=== PATIENT | female | born 1995 | race Hispanic/Latino ===

== ENCOUNTER 2017-09-15 12:15 | Inpatient (IN) | payer MEDICAID ==
[~2017-09-15] VITALS: Ht 142.2 cm; Wt 72.1 kg
[2017-09-15 13:21] LABS: APPEARANCE,URINE Clear (CLEAR); BILIRUBIN,URINE Negative (NEGATIVE); COLOR,URINE Yellow (YELLOW); GLUCOSE, URINE (UA) Negative (NEGATIVE); KETONES,URINE Negative (NEGATIVE); LEUKOCYTE ESTERASE ,URINE Moderate (NEGATIVE); NITRATE,URINE Negative (NEGATIVE); OCCULT BLOOD,URINE Large (NEGATIVE); PROTEIN,URINE Negative (NEGATIVE); UROBILINOGEN,URINE 0.2 mg/dL (0.2-1.0)
[2017-09-15] MEDS ORDERED: LACTATED RINGERS 1000ML 1,000 ML IV PRN (13:45)
[2017-09-15 13:54] LABS: BACTERIA,URINE Rare /HPF (None Seen); RBC,URINE 51-100 /HPF (0-1); SQUAMOUS EPITHELIAL CELL,UR Few /LPF (0-2)
[2017-09-15 15:35] LABS: HEMATOCRIT 37.3 % (36-48); MEAN CORPUSCULAR VOLUME 91.7 fL (79-99); NUCLEATED RED BLOOD CELLS 0.1 % (0.0-0.19); PLATELET COUNT (AUTO) 243 K/uL (130-400); RED BLOOD CELL COUNT(AUTO) 4.07 MIL/uL (4.00-5.50); RED CELL DISTRIBUTION WIDTH 14.1 % (11.0-15.5); WHITE BLOOD COUNT (AUTO) 9.5 K/uL (4.8-10.8)
[2017-09-15] MEDS ORDERED: LACTATED RINGERS 1000ML 1,000 ML IV ONE (23:45)
[2017-09-15] MEDS ORDERED: OXYTOCIN 10 USP UNITS/ML ONE (23:46)
[2017-09-16] MEDS ORDERED: OXYTOCIN 10 USP UNITS/ML 20 UNIT in LACTATED RINGERS 1000ML 1,000 ML IV SCH ×2
[2017-09-16] MEDS ORDERED: MEPERIDINE-PF 50 MG/ML SYG IVP PRN (02:45)
[2017-09-16] MEDS ORDERED: PROMETHAZINE HCL 25 MG/ML 1ML AMPULE IM PRN ×3 (02:45→21:30)
[2017-09-16] MEDS ORDERED: LACTATED RINGERS 500 ML 500 ML IV PRN (02:45)
[2017-09-16] MEDS ORDERED: EPHEDRINE SULFATE 50 MG/ML AMPULE IVP PRN ×2 (02:45→14:00)
[2017-09-16] MEDS ORDERED: NALOXONE HCL 0.4 MG/1 ML ML IV PRN (02:45)
[2017-09-16] MEDS ORDERED: ROPIVACAINE 0.2%200ML EPIDURAL 200 ML EP SCH (02:45)
[2017-09-16] MEDS ORDERED: CEFAZOLIN SODIUM 1 GM VIAL IVP PRN (11:15)
[2017-09-16] MEDS ORDERED: CALDOLOR 800MG+NS 250ML 250 ML IV PRN (11:15)
[2017-09-16] MEDS ORDERED: LIDOCAINE HCL-MPF 2% 10ML AMP IJ ONE (11:28)
[2017-09-16] MEDS ORDERED: EPHEDRINE-NS PF 50MG/5ML SYRINGE IV ONE (11:33)
[2017-09-16] MEDS ORDERED: BUPIVACAINE/PF 0.25% 30ML VIAL IJ ONE (11:33)
[2017-09-16] MEDS ORDERED: OXYTOCIN 10 UNIT/1ML 10ML VIAL ONE ×2 (11:34→11:57)
[2017-09-16] MEDS ORDERED: CEFAZOLIN SODIUM 1 GM VIAL IVP ONE (11:48)
[2017-09-16] MEDS ORDERED: MIDAZOLAM HCL 1 MG/ML 2ML VIAL ONE (12:01)
[2017-09-16] MEDS ORDERED: FENTANYL CITRATE PF 50 MCG/1 ML 2ML VIAL ONE (12:02)
[2017-09-16] MEDS ORDERED: ONDANSETRON HCL 4 MG/2 ML VIAL ONE (12:08)
[2017-09-16] MEDS ORDERED: SODIUM CHLORIDE 0.9% 10 ML VIAL IVP PRN (12:45)
[2017-09-16] MEDS ORDERED: MEASLES/MUMPS/RUBELLA VACCINE, LIVE 0.5 ML/VIAL SQ SCH (12:45)
[2017-09-16] MEDS ORDERED: DIPH,PERTUSS(ACELL),TET VAC/PF 0.5 ML VIAL IM SCH (12:45)
[2017-09-16] MEDS ORDERED: HYDROCODONE/ACETAMINOPHEN 5/325 MG TAB PO PRN ×2 (14:00)
[2017-09-16] MEDS ORDERED: METOCLOPRAMIDE 10 MG/2 ML VIAL IVP PRN (14:00)
[2017-09-16] MEDS ORDERED: MORPHINE SULFATE 2 MG/ML 1ML SYG IVP PRN (14:00)
[2017-09-16] MEDS ORDERED: ONDANSETRON HCL 4 MG/2 ML 8 MG in SODIUM CHLORIDE 0.9% 50 ML IVP NR (14:00)
[2017-09-16] MEDS ORDERED: NALOXONE HCL 0.4 MG/1 ML ML IVP PRN ×2 (14:00)
[2017-09-16] MEDS ORDERED: DiphenhydrAMINE HCL 50 MG/ML VIAL IVP PRN (14:00)
[2017-09-16] MEDS ORDERED: ONDANSETRON HCL 4 MG/2 ML VIAL IVP PRN ×2 (14:00)
[2017-09-16 14:48] VITALS: BP 116/60
[2017-09-16 16:48] VITALS: BP 116/64
[2017-09-16] MEDS ORDERED: PNV1TABL17 PO (17:28)
[2017-09-16 20:20] VITALS: BP 123/66
[2017-09-16] MEDS: DEXTROSE 5 %-0.45 % NACL 1,000 ML IV PRN (21:16)
[2017-09-16] MEDS ORDERED: MEPERIDINE-PF 75 MG/ML SYG IM PRN (21:30)
[2017-09-16] MEDS: CALDOLOR 800MG+NS 250ML 250 ML IV SCH (21:30)
[2017-09-16 23:13] VITALS: BP 98/60
[2017-09-17 03:01] VITALS: BP 105/52
[2017-09-17] MEDS: DEXTROSE 5 %-0.45 % NACL 1,000 ML IV PRN (04:46)
[2017-09-17] MEDS: CALDOLOR 800MG+NS 250ML 250 ML IV SCH (05:02)
[2017-09-17 07:02] LABS: HEMATOCRIT 32.2 % (36-48); MEAN CORPUSCULAR HEMOGLOBIN 33.3 pg (27.0-33.0); MEAN CORPUSCULAR HGB CONC 35.9 g/dL (32.0-36.0); MEAN CORPUSCULAR VOLUME 92.7 fL (79-99); NUCLEATED RED BLOOD CELLS 0.1 % (0.0-0.19); PLATELET COUNT (AUTO) 181 K/uL (130-400); RED BLOOD CELL COUNT(AUTO) 3.47 MIL/uL (4.00-5.50); RED CELL DISTRIBUTION WIDTH 14.4 % (11.0-15.5); WHITE BLOOD COUNT (AUTO) 10.4 K/uL (4.8-10.8)
[2017-09-17 07:56] VITALS: BP 105/46
[2017-09-17 08:22] LABS: HEPATITIS Bs ANTIGEN SCREEN P Negative (Negative)
[2017-09-17] MEDS: ACETAMINOPHEN-CODEINE 300/30MG TAB PO PRN ×2 (09:54→16:57)
[2017-09-17 11:13] VITALS: BP 106/72
[2017-09-17] MEDS ORDERED: BISACODYL 10 MG SUPP.RECT RC PRN (12:15)
[2017-09-17] MEDS: SIMETHICONE 80 MG TAB.CHEW PO PRN ×3 (13:20→20:51)
[2017-09-17] MEDS: IBUPROFEN 600 MG TABLET PO PRN ×2 (13:22→18:17)
[2017-09-17 15:46] VITALS: BP 108/65
[2017-09-17] MEDS: DOCUSATE SODIUM 100 MG CAP PO SCH (20:51)
[2017-09-17 21:01] VITALS: BP 107/61
[2017-09-18 00:08] VITALS: BP 118/82
[2017-09-18] MEDS: IBUPROFEN 600 MG TABLET PO PRN ×2 (00:48→13:24)
[2017-09-18 04:05] VITALS: BP 109/60
[2017-09-18] MEDS: ACETAMINOPHEN-CODEINE 300/30MG TAB PO PRN (05:57)
[2017-09-18 07:49] VITALS: BP 113/65
[2017-09-18] MEDS: DOCUSATE SODIUM 100 MG CAP PO SCH (10:16)
[2017-09-18] MEDS: SIMETHICONE 80 MG TAB.CHEW PO PRN (10:17)
[2017-09-18 11:29] VITALS: BP 126/68
== END 2017-09-18 14:00 | disposition home or self-care (01) | DRG 540 ==
LOC: LDH 12:15 → OBSVTOIN 12:15 → LDH 09-16 02:50 → WSH 09-16 14:45
PROVIDERS: ADMIT Obstetrics & Gynecology; ATTEND Obstetrics & Gynecology
PROC: 3E0234Z Introduction of Serum, Toxoid and Vaccine into Muscle, Percutaneous Approach (ICD-10-PCS; 2017-09-16)
PROC: 3E0134Z Introduction of Serum, Toxoid and Vaccine into Subcutaneous Tissue, Percutaneous Approach (ICD-10-PCS; 2017-09-16)
PROC: 10D00Z1 Extraction of Products of Conception, Low, Open Approach (ICD-10-PCS; principal; 2017-09-16 11:30)
DX: O32.9XX0 Maternal care for malpresentation of fetus, unspecified, not applicable or unspecified (principal); E66.9 Obesity, unspecified; O76 Abnormality in fetal heart rate and rhythm complicating labor and delivery; N83.8 Other noninflammatory disorders of ovary, fallopian tube and broad ligament; O99.214 Obesity complicating childbirth; Z68.35 Body mass index [BMI] 35.0-35.9, adult; Z3A.39 39 weeks gestation of pregnancy; Z37.0 Single live birth; Z23 Encounter for immunization
CPT/HCPCS: 36415; 59510; 81001; 82120; 85027; 86592; 86850; 86900; 86901; 87340; 88305; 90707; 90715; A4314; A4344; A4606; J0690; J1741; J2175; J2250; J2405; J2550; J2590; J3010; J3490; J7120

== ENCOUNTER 2021-08-19 13:00 | Inpatient (IN) | payer MEDICAID ==
[~2021-08-19] VITALS: Ht 142.2 cm; Wt 78.5 kg
[~2021-08-19 13:00] MED LIST: PNV1TABL17 PO
[2021-08-22] MEDS ORDERED: LORA10TA7 PO (05:33)
[2021-08-22] MEDS ORDERED: PREN-196 PO (05:33)
[2021-08-22] MEDS ORDERED: ALBU1.252 IH (05:49)
[2021-08-22] MEDS ORDERED: CEFAZOLIN SODIUM 1 GM VIAL IVP PRN (06:00)
[2021-08-22] MEDS: LACTATED RINGERS 1000ML 1,000 ML IV SCH ×2 (06:10→21:30)
[2021-08-22 06:25] LABS: HEMATOCRIT 35.1 % (36-48); MEAN CORPUSCULAR HEMOGLOBIN 29.1 pg (27.0-33.0); MEAN CORPUSCULAR HGB CONC 33.3 g/dL (32.0-36.0); MEAN CORPUSCULAR VOLUME 87.3 fL (79-99); RED BLOOD CELL COUNT(AUTO) 4.02 MIL/uL (4.00-5.50); RED CELL DISTRIBUTION WIDTH 13.8 % (11.0-15.5); WHITE BLOOD COUNT (AUTO) 7.9 K/uL (4.8-10.8)
[2021-08-22 06:28] VITALS: BP 107/60
[2021-08-22] MEDS ORDERED: FENTANYL CITRATE PF 50 MCG/1 ML 2ML VIAL ONE (08:03)
[2021-08-22] MEDS ORDERED: ONDANSETRON 4MG INJ ONE (08:03)
[2021-08-22] MEDS ORDERED: MORPHINE PF 100MG/10ML AMP IV ONE (08:03)
[2021-08-22] MEDS ORDERED: OXYTOCIN 10 USP UNITS/ML ONE (08:06)
[2021-08-22] MEDS ORDERED: OXYTOCIN-LR 20 UNITS/1000 ML 1,000 ML IV ONE (08:33)
[2021-08-22] MEDS ORDERED: EPHEDRINE SULFATE 50 MG/ML AMPULE ONE (09:19)
[2021-08-22] MEDS ORDERED: LORATADINE 10 MG TABLET PO PRN (10:30)
[2021-08-22] MEDS ORDERED: DiphenhydrAMINE HCL 50 MG/ML VIAL IVP PRN ×2 (11:00→16:30)
[2021-08-22] MEDS ORDERED: EPHEDRINE SULFATE 50 MG/ML AMPULE IVP PRN ×2 (11:00→16:30)
[2021-08-22] MEDS ORDERED: NALOXONE HCL 0.4 MG/1 ML ML IVP PRN ×4 (11:00→16:30)
[2021-08-22 11:36] LABS: RAPID PLASMA REAGIN NONREACTIVE (NONREACTIVE)
[2021-08-22 12:38] VITALS: BP 101/54
[2021-08-22] MEDS: ONDANSETRON 4MG INJ IVP PRN ×2 (14:39→21:44)
[2021-08-22 16:15] VITALS: BP 107/73
[2021-08-22] MEDS ORDERED: ONDANSETRON 4MG INJ IVP PRN (16:30)
[2021-08-22] MEDS ORDERED: MEPERIDINE-PF 75 MG/ML SYG IM PRN (17:00)
[2021-08-22] MEDS ORDERED: PROMETHAZINE HCL 25 MG/ML 1ML AMPULE IM PRN (17:00)
[2021-08-22] MEDS ORDERED: 0.9%NACL 10ML VIAL IVP PRN (17:00)
[2021-08-22] MEDS: DEXTROSE 5 %-0.45 % NACL 1,000 ML IV PRN (18:43)
[2021-08-22 19:30] VITALS: BP 95/55
[2021-08-22 22:52] VITALS: BP 97/58
[2021-08-23] MEDS: DEXTROSE 5 %-0.45 % NACL 1,000 ML IV PRN (02:11)
[2021-08-23 04:20] VITALS: BP 92/58
[2021-08-23 06:27] LABS: HEMATOCRIT 31.1 % (36-48); MEAN CORPUSCULAR HEMOGLOBIN 29.4 pg (27.0-33.0); MEAN CORPUSCULAR HGB CONC 32.5 g/dL (32.0-36.0); MEAN CORPUSCULAR VOLUME 90.7 fL (79-99); RED BLOOD CELL COUNT(AUTO) 3.43 MIL/uL (4.00-5.50); WHITE BLOOD COUNT (AUTO) 9.7 K/uL (4.8-10.8)
[2021-08-23 07:30] VITALS: BP 100/60
[2021-08-23] MEDS ORDERED: BISACODYL 10 MG SUPP.RECT RC PRN (07:30)
[2021-08-23] MEDS ORDERED: ACETAMINOPHEN WITH CODEINE 1 TAB TAB PO PRN (07:30)
[2021-08-23] MEDS ORDERED: ACETAMINOPHEN 500 MG TABLET PO PRN (07:30)
[2021-08-23] MEDS ORDERED: IBUPROFEN 800 MG TAB PO SCH (07:30)
[2021-08-23] MEDS ORDERED: SIMETHICONE 80 MG TAB.CHEW PO PRN (07:30)
[2021-08-23] MEDS ORDERED: HYDROCODONE/ACETAMINOPHEN 5/325 MG TAB PO PRN (07:30)
[2021-08-23] MEDS ORDERED: DOCUSATE SODIUM 100 MG CAP PO SCH (09:00)
[2021-08-23] MEDS ORDERED: ACET1TAB25 PO (11:40)
[2021-08-23] MEDS ORDERED: FERS325 PO (11:41)
[2021-08-23 12:07] VITALS: BP 100/48
[2021-08-23 16:09] LABS: HEPATITIS Bs ANTIGEN SCREEN P Negative (Negative)
== END 2021-08-23 13:10 | disposition home or self-care (01) | DRG 540 ==
LOC: LDH 08-22 05:15 → WSH 08-22 12:43
PROVIDERS: ADMIT Obstetrics & Gynecology; ATTEND Obstetrics & Gynecology
PROC: 10D00Z1 Extraction of Products of Conception, Low, Open Approach (ICD-10-PCS; principal; 2021-08-22 08:00)
DX: O34.211 Maternal care for low transverse scar from previous cesarean delivery (principal); J45.909 Unspecified asthma, uncomplicated; Z20.822 Contact with and (suspected) exposure to COVID-19; O99.62 Diseases of the digestive system complicating childbirth; O99.52 Diseases of the respiratory system complicating childbirth; K21.9 Gastro-esophageal reflux disease without esophagitis; Z37.0 Single live birth; Z3A.39 39 weeks gestation of pregnancy
CPT/HCPCS: 36415; 59510; 85027; 86592; 86701; 86850; 86900; 86901; 87340; 87390; 87635; A4344; G0378; J0690; J2175; J2274; J2405; J2550; J2590; J3010; J3490; J7120